=== PATIENT | male | born 1995 | race African-American/Black ===

== ENCOUNTER 2017-04-13 18:11 | Emergency (ER) | payer OTHER ==
[2017-04-13] MEDS ORDERED: DIPHENHYDRAMINE HCL 50 MG/ML VIAL IM ONE (18:59)
[2017-04-13] MEDS ORDERED: KETOROLAC TROMETHAMINE 60 MG/2 ML SDV IM ONE (18:59)
[2017-04-13] MEDS ORDERED: PROCHLORPERAZINE EDISYLATE INJ 10 MG/2 ML VIAL IM ONE (18:59)
--- NOTE | 2017-04-13 19:00 | ER Document Report ---
ED Headache - General Mode of Arrival: Ambulatory Information source: Patient TRAVEL OUTSIDE OF THE [place] IN LAST 30 DAYS: No - HPI Patient complains to provider of: Headache Onset: Other - 5 days ago Associated symptoms: Other - see notes above <YURY DE LEON - Last Filed: 04/13/17 20:13> <GEO GARNICA - Last Filed: 04/13/17 21:49> - General Chief Complaint: Headache >24 hrs old Stated Complaint: HEADACHE Time Seen by Provider: 04/13/17 18:51 Notes: 21 year old male with history of headaches presents to the ED complaining of an intermittent headache that started 5 days ago and has been bouncing back and forth behind his right and left eye. Patient states that yesterday his headache only lasted 1 hour, but has been constant today since 1200. Patient denies blurry vision, fever, neck pain, vision changes, nausea, vomiting, numbness, or tingling, or rhinorrhea. Patient has taken advil to help with pain. (YURY DE LEON ) - Related Data Allergies/Adverse Reactions: No Known Allergies Allergy (Unverified 04/13/17 18:32) Past Medical History - General Information source: Patient - Social History Smoking Status: Never Smoker Chew tobacco use (# tins/day): No Frequency of alcohol use: None Drug Abuse: None Family History: Reviewed & Not Pertinent Patient has suicidal ideation: No Neurological Medical History: Reports: Other - headaches Renal/ Medical History: Denies: Hx Peritoneal Dialysis Surgical Hx: Negative - Immunizations Hx Diphtheria, Pertussis, Tetanus Vaccination: No <YURY DE LEON - Last Filed: 04/13/17 20:13> Review of Systems - Review of Systems Constitutional: No symptoms reported. denies: Fever EENT: No symptoms reported. denies: Blurred vision, Nose congestion, Nose discharge Cardiovascular: No symptoms reported Respiratory: No symptoms reported Gastrointestinal: No symptoms reported. denies: Nausea, Vomiting Genitourinary: No symptoms reported Male Genitourinary: No symptoms reported Musculoskeletal: No symptoms reported. denies: Neck pain Skin: No symptoms reported Hematologic/Lymphatic: No symptoms reported Neurological/Psychological: See HPI, Headaches. denies: Numbness, Tingling -: Yes All other systems reviewed and negative <YURY DE LEON - Last Filed: 04/13/17 20:13> Physical Exam - General General appearance: Alert In distress: None - HEENT Head: Normocephalic, Atraumatic Eyes: Normal Extraocular movements intact: Yes Pupils: PERRL - Respiratory Respiratory status: No respiratory distress Breath sounds: Normal - Cardiovascular Rhythm: Regular Heart sounds: Normal auscultation Murmur: No Friction rub: No Gallop: None auscultated - Extremities General upper extremity: Normal inspection, Normal ROM General lower extremity: Normal inspection, Normal ROM - Neurological Neuro grossly intact: Yes Cognition: Normal Orientation: AAOx4 [place] Coma Scale Eye Opening: Spontaneous [place] Coma Scale Verbal: Oriented [place] Coma Scale Motor: Obeys Commands [place] Coma Scale Total: 15 Speech: Normal Brachioradialis - Reflex grade: 2 = Normal Knee - Reflex grade: 2 = Normal - Psychological Associated symptoms: Normal affect, Normal mood - Skin Skin Temperature: Warm Skin Moisture: Dry Skin Color: Normal <YURY DE LEON - Last Filed: 04/13/17 20:13> - Respiratory Chest status: Nontender - Cardiovascular Normal capillary refill: Yes <GEO GARNICA - Last Filed: 04/13/17 21:49> - Vital signs Vitals: Temp Pulse Resp BP Pulse Ox 98.4 F 66 16 151/89 H 100 04/13/17 18:32 04/13/17 18:32 04/13/17 18:32 04/13/17 18:32 04/13/17 18:32 Course <YURY DE LEON - Last Filed: 04/13/17 20:13> <GEO GARNICA - Last Filed: 04/13/17 21:49> - Re-evaluation Re-evalutation: 04/13/17 19:22 neurologically intact, no meningismus, headache waxing and waning not consistent with meningitis or SAH. Treat with Toradol, compazine and benadryl IM, no indication for CT head. discharge to home. (GEO GARNICA) - Vital Signs Vital signs: Temp Pulse Resp BP Pulse Ox 98.2 F 68 18 142/74 H 100 04/13/17 20:30 04/13/17 20:30 04/13/17 20:30 04/13/17 20:30 04/13/17 20:30 Discharge <YURY DE LEON - Last Filed: 04/13/17 20:13> <GEO GARNICA - Last Filed: 04/13/17 21:49> - Discharge Clinical Impression: Elevated blood pressure reading Headache Qualifiers: Headache type: unspecified Headache chronicity pattern: acute headache Intractability: intractable Qualified Code(s): R51 - Headache Condition: Stable Disposition: HOME, SELF-CARE Additional Instructions: There was no evidence of meningitis or bleeding in the brain on your exam today. We treated your headache with Toradol, Compazine and Benadryl. Please go home and rest. Avoid cigarette smoking and alcohol. Your blood pressure was elevated, this is likely due to your pain. You will want to have your blood pressure rechecked when your pain has completely resolved. Scribe Attestation: 04/13/17 21:48 I personally performed the services described in the documentation, reviewed and edited the documentation which was dictated to the scribe in my presence, and it accurately records my words and actions. (GEO GARNICA) Scribe Documentation - Scribe Written by Dennis:: Eliza Valdez 04/13/20172031 acting as scribe for :: Karyn <YURY DE LEON - Last Filed: 04/13/17 20:13>
[2017-04-13 20:36] VITALS: BP 142/74
== END 2017-04-13 20:30 | disposition home or self-care (01) ==
LOC: ER 18:11
DX: R51 Headache (principal); R03.0 Elevated blood-pressure reading, without diagnosis of hypertension
CPT/HCPCS: 99283; 96372; J1200; J1885; J0780